=== PATIENT | male | born 1985 | race Caucasian/White ===

== ENCOUNTER 2023-08-25 21:23 | Inpatient (IN) | payer OTHER ==
[~2023-08-25] VITALS: Ht 188 cm; Wt 63.0 kg
[2023-08-25 22:04] VITALS: BP_SYST 101; PULSE 94; RESP 18; TEMP 97.7; O2SAT 96
[2023-08-25 23:21] LABS: BASOPHILS # (AUTO) 0.1 K/uL (0.0-0.2); BASOPHILS % (AUTO) 1.1 % (0.0-2.0); EOSINOPHILS # (AUTO) 0.4 K/uL (0.0-0.4); HEMATOCRIT 31.4 % (36-54); HEMOGLOBIN 9.9 g/dL (14.0-18.0); LYMPHOCYTES # (AUTO) 1.6 K/uL (1.0-5.5); MEAN CORPUSCULAR HEMOGLOBIN 23 pg (27-31); MEAN CORPUSCULAR HGB CONC 31 % (32-36); MEAN CORPUSCULAR VOLUME 73 fL (79.0-98.0); MONOCYTES # (AUTO) 0.6 K/uL (0.0-1.0); MONOCYTES % (AUTO) 8.9 % (1.7-9.3); NEUTROPHILS # (AUTO) 3.6 K/uL (1.8-7.7); PLATELET COUNT (AUTO) 316 K/uL (130-430); RED BLOOD CELL COUNT(AUTO) 4.33 MIL/uL (4.2-6.2); RED CELL DISTRIBUTION WIDTH 27.7 % (9.0-15.0); WHITE BLOOD COUNT (AUTO) 6.3 K/uL (4.8-10.8)
[2023-08-25 23:30] LABS: CALCIUM 8.5 mg/dL (8.4-11.0); CREATININE 0.48 mg/dL (0.55-1.30); POTASSIUM 4.1 mmol/L (3.5-5.1)
[2023-08-25 23:37] LABS: ALBUMIN 2.8 g/dL (3.4-4.8); TOTAL BILIRUBIN 0.2 mg/dL (0.0-1.0); TOTAL PROTEIN, SERUM 6.8 g/dL (6.4-8.3)
[2023-08-26] MEDS ORDERED: HYDROcodone/ACETAMIN 5-325 MG TAB (NORCO/ VICODIN) PO ONE (00:45)
[2023-08-26 02:04] LABS: ANISOCYTOSIS 2+
[2023-08-26 02:06] LABS: HYPOCHROMASIA 1+
[2023-08-26 02:50] LABS: BILIRUBIN,URINE NEGATIVE (NEGATIVE); COLOR,URINE YELLOW (YELLOW); GLUCOSE,URINE NEGATIVE (NEGATIVE); KETONES,URINE NEGATIVE (NEGATIVE); LEUKOCYTE ESTERASE ,URINE 3+ (NEGATIVE); NITRITE, URINE POSITIVE (NEGATIVE); PH,URINE 7.5 (5.0-8.0); PROTEIN URINE NEGATIVE (NEGATIVE); UROBILINOGEN,URINE 0.2 (0.2-1.0)
[2023-08-26] MEDS ORDERED: KETOROLAC TROMETHAMINE 15 MG VIAL IVP ONE (03:00)
[2023-08-26] MEDS ORDERED: KETOROLAC TROMETHAMINE 30 MG VIAL ONE (03:14)
[2023-08-26 03:18] LABS: BLOOD, URINE TRACE (NEGATIVE); CLARITY/URINE CLOUDY (CLEAR)
[2023-08-26 03:20] LABS: BACTERIA,URINE MANY /HPF (None Seen); WBC,URINE 50-80 /HPF (0-3)
[2023-08-26] MEDS ORDERED: cefTRIAXone 1 GM IVPB PREMIX 50 ML IV ONE (03:30)
[2023-08-26] MEDS ORDERED: INSULIN REGULAR, HUMAN 100 UNITS/ML, 3 ML VIAL (humuLIN R) SUBCUT PRN (03:45)
[2023-08-26 05:57] VITALS: BP_SYST 115; PULSE 64; RESP 18; TEMP 97.9
[2023-08-26] MEDS ORDERED: POTASSIUM CHLORIDE 20 MEQ TAB.PRT.SR PO PRN (07:30)
[2023-08-26] MEDS ORDERED: HYDROcodone/ACETAMIN 5-325 MG TAB (NORCO/ VICODIN) PO PRN (07:30)
[2023-08-26] MEDS ORDERED: MAGNESIUM SULFATE 50 ML IV PRN (07:30)
[2023-08-26] MEDS ORDERED: NALOXONE HCL 0.4 MG/ML AMP (NARCAN) IVP PRN ×2 (07:30→11:00)
[2023-08-26] MEDS ORDERED: MUPIROCIN 2% TOPICAL OINTMENT 22 GM NS PRN (07:30)
[2023-08-26] MEDS ORDERED: ZOLPIDEM TARTRATE 5 MG TABLET PO PRN (07:30)
[2023-08-26] MEDS ORDERED: ONDANSETRON HCL 4 MG/2 ML VIAL IVP PRN (07:30)
[2023-08-26] MEDS ORDERED: DOCUSATE SODIUM 100 MG CAPSULE PO PRN (07:30)
[2023-08-26] MEDS ORDERED: ACETAMINOPHEN 325 MG TABLET PO PRN (07:30)
[2023-08-26] MEDS ORDERED: VANC1.2527 IVPB (07:40)
[2023-08-26 08:00] VITALS: BP_SYST 121; PULSE 77; RESP 16; TEMP 98; O2SAT 96; O2SAT 98
[2023-08-26 12:00] VITALS: BP_SYST 111; PULSE 81; RESP 18; TEMP 98; O2SAT 95
[2023-08-26] MEDS: MORPHINE 2 MG/ML INJ. SYRINGE IVP PRN ×2 (13:21→20:36)
[2023-08-26] MEDS: NACL 0.9% 1,000 ML IV SCH ×2 (13:29→23:45)
[2023-08-26] MEDS: VANCOMYCIN HCL 750 MG in NS 250 ML IV SCH ×2 (15:02→22:34)
[2023-08-26 16:18] VITALS: BP_SYST 110; PULSE 80; RESP 18; TEMP 97.8; O2SAT 95
[2023-08-26] MEDS ORDERED: BALSAM PERU/CASTOR OIL 56.7 GM OINT...G. TP ONE (18:00)
[2023-08-26 20:00] VITALS: BP_SYST 111; PULSE 78; RESP 18; TEMP 99.4; O2SAT 96
[2023-08-26] MEDS: carisoprodoL 350 MG TABLET PO SCH (20:36)
[2023-08-26] MEDS ORDERED: cefTRIAXone 1 GM in D5W 50 ML IV SCH (21:00)
[2023-08-26] MEDS: LORazepam 2 MG/ML VIAL IVP PRN (21:41)
[2023-08-27] MEDS ORDERED: HYDR-3917 PO (02:52)
[2023-08-27] MEDS ORDERED: BACL20TA PO (02:52)
[2023-08-27] MEDS ORDERED: ACET325T PO (02:52)
[2023-08-27] MEDS ORDERED: QUET100T34 PO (02:52)
[2023-08-27] MEDS ORDERED: FER300L PO (02:52)
[2023-08-27] MEDS ORDERED: ZOLP5TAB2 PO (02:52)
[2023-08-27] MEDS ORDERED: LACT1TAB14 PO (02:52)
[2023-08-27] MEDS: LORazepam 2 MG/ML VIAL IVP PRN ×4 (05:52→18:55)
[2023-08-27] MEDS: VANCOMYCIN HCL 750 MG in NS 250 ML IV SCH ×3 (05:54→20:24)
[2023-08-27 06:16] VITALS: BP_SYST 131
[2023-08-27 07:19] LABS: BASOPHILS # (AUTO) 0.1 K/uL (0.0-0.2); BASOPHILS % (AUTO) 1.3 % (0.0-2.0); EOSINOPHILS # (AUTO) 0.4 K/uL (0.0-0.4); HEMATOCRIT 32.7 % (36-54); LYMPHOCYTES # (AUTO) 1.1 K/uL (1.0-5.5); LYMPHOCYTES % (AUTO) 21.9 % (20.5-51.5); MEAN CORPUSCULAR HEMOGLOBIN 22 pg (27-31); MEAN CORPUSCULAR HGB CONC 31 % (32-36); MEAN CORPUSCULAR VOLUME 73 fL (79.0-98.0); MONOCYTES # (AUTO) 0.5 K/uL (0.0-1.0); NEUTROPHILS # (AUTO) 2.9 K/uL (1.8-7.7); NEUTROPHILS % (AUTO) 58.8 % (40.0-70.0); PLATELET COUNT (AUTO) 279 K/uL (130-430); RED BLOOD CELL COUNT(AUTO) 4.47 MIL/uL (4.2-6.2); WHITE BLOOD COUNT (AUTO) 4.9 K/uL (4.8-10.8)
[2023-08-27 07:39] LABS: CALCIUM 8.2 mg/dL (8.4-11.0); CREATININE 0.34 mg/dL (0.55-1.30); POTASSIUM 4.1 mmol/L (3.5-5.1)
[2023-08-27 07:44] LABS: RED CELL DISTRIBUTION WIDTH 27.4 % (9.0-15.0)
[2023-08-27 08:00] VITALS: BP_SYST 130; PULSE 64; RESP 16; TEMP 98.4; O2SAT 97
[2023-08-27] MEDS: carisoprodoL 350 MG TABLET PO SCH ×2 (08:26→20:24)
[2023-08-27] MEDS: MORPHINE 2 MG/ML INJ. SYRINGE IVP PRN ×3 (08:27→22:07)
[2023-08-27] MEDS ORDERED: BALSAM PERU/CASTOR OIL 56.7 GM OINT...G. TP SCH (09:00)
[2023-08-27] MEDS: NACL 0.9% 1,000 ML IV SCH ×2 (09:45→17:27)
[2023-08-27 13:46] VITALS: BP_SYST 106; PULSE 81; RESP 15; TEMP 98.4; O2SAT 95
[2023-08-27 17:29] VITALS: BP_SYST 109; PULSE 70; RESP 15; TEMP 98.4; O2SAT 98
[2023-08-27 20:00] VITALS: BP_SYST 126; PULSE 86; RESP 16; TEMP 98.4; O2SAT 94
[2023-08-28] MEDS: LORazepam 2 MG/ML VIAL IVP PRN ×4 (01:05→13:41)
[2023-08-28 02:52] VITALS: BP_SYST 137; PULSE 86; RESP 16; TEMP 97.3; O2SAT 96
[2023-08-28] MEDS: NACL 0.9% 1,000 ML IV SCH (06:07)
[2023-08-28] MEDS: VANCOMYCIN HCL 750 MG in NS 250 ML IV SCH (06:07)
[2023-08-28] MEDS: MORPHINE 2 MG/ML INJ. SYRINGE IVP PRN (06:08)
[2023-08-28 06:43] LABS: BASOPHILS # (AUTO) 0.1 K/uL (0.0-0.2); BASOPHILS % (AUTO) 1.3 % (0.0-2.0); EOSINOPHILS # (AUTO) 0.4 K/uL (0.0-0.4); EOSINOPHILS % (AUTO) 6.1 % (0.0-4.0); HEMATOCRIT 32.3 % (36-54); HEMOGLOBIN 10.1 g/dL (14.0-18.0); LYMPHOCYTES # (AUTO) 1.4 K/uL (1.0-5.5); LYMPHOCYTES % (AUTO) 24.4 % (20.5-51.5); MEAN CORPUSCULAR HEMOGLOBIN 23 pg (27-31); MEAN CORPUSCULAR HGB CONC 31 % (32-36); MEAN CORPUSCULAR VOLUME 73 fL (79.0-98.0); MONOCYTES # (AUTO) 0.6 K/uL (0.0-1.0); MONOCYTES % (AUTO) 9.6 % (1.7-9.3); NEUTROPHILS # (AUTO) 3.4 K/uL (1.8-7.7); NEUTROPHILS % (AUTO) 58.6 % (40.0-70.0); PLATELET COUNT (AUTO) 281 K/uL (130-430); RED BLOOD CELL COUNT(AUTO) 4.46 MIL/uL (4.2-6.2); WHITE BLOOD COUNT (AUTO) 5.9 K/uL (4.8-10.8)
[2023-08-28 06:51] LABS: CALCIUM 8.2 mg/dL (8.4-11.0); CREATININE 0.4 mg/dL (0.55-1.30); POTASSIUM 3.9 mmol/L (3.5-5.1)
[2023-08-28 07:49] LABS: RED CELL DISTRIBUTION WIDTH 27.5 % (9.0-15.0)
[2023-08-28 08:00] VITALS: BP_SYST 125; PULSE 97; RESP 17; TEMP 98.7; O2SAT 96
[2023-08-28] MEDS: carisoprodoL 350 MG TABLET PO SCH (09:05)
[2023-08-28] MEDS ORDERED: MORPHINE 2 MG/ML INJ. SYRINGE IVP ONE (11:15)
[2023-08-28 11:44] VITALS: BP_SYST 106; PULSE 70; RESP 15; TEMP 98.5; O2SAT 98
[2023-08-28 13:18] VITALS: BP_SYST 121; PULSE 83; RESP 17; TEMP 98.6; O2SAT 98
== END 2023-08-28 14:05 | DRG 698 ==
LOC: SED 21:23 → SMU 08-26 03:41
PROVIDERS: ADMIT General Practice; ATTEND General Practice
DX: T83.511A Infection and inflammatory reaction due to indwelling urethral catheter, initial encounter (principal); L89.154 Pressure ulcer of sacral region, stage 4; M46.28 Osteomyelitis of vertebra, sacral and sacrococcygeal region; G82.20 Paraplegia, unspecified; F11.20 Opioid dependence, uncomplicated; E11.69 Type 2 diabetes mellitus with other specified complication; N39.0 Urinary tract infection, site not specified; D50.9 Iron deficiency anemia, unspecified; X58.XXXA Exposure to other specified factors, initial encounter; Y93.89 Activity, other specified; Y92.89 Other specified places as the place of occurrence of the external cause; Y99.8 Other external cause status; Z87.828 Personal history of other (healed) physical injury and trauma
CPT/HCPCS: 36415; 73502; 80048; 80053; 80202; 81000; 83037; 83735; 85025; 87040; 87081; 87086; 99285; J0696; J1815; J1885; J2060; J2270; J2405; J7050; J7060